=== PATIENT | female | born 1995 | race Caucasian/White ===

== ENCOUNTER 2016-05-30 10:48 | Emergency (ER) | payer BC, OTHER ==
[2016-05-30 11:33] LABS: BASO % 0.3 % (0.0-1.0); EOS # 0.2 K/mm3 (0.0-0.50); EOS % 2.2 % (0.0-3.0); LARGE UNSTAINED CELL # 0.1 K/mm3 (0.0-0.4); LYMPH # 1.4 K/mm3 (1.5-6.5); LYMPH % 14.7 % (24.0-44.0); MEAN CORPUSCULAR HGB CONC 35.5 g/dl (32.0-36.5); MEAN CORPUSCULAR VOLUME 87.1 fl (80.0-96.0); MONO # 0.5 K/mm3 (0.0-0.8); MONO % 5.6 % (0.0-5.0); NEUTROPHILS # 7.3 K/mm3 (1.8-7.7); NEUTROPHILS % 76.1 % (36.0-66.0); PLATELET COUNT, AUTOMATED 296 k/mm3 (150-450); RED CELL DISTRIBUTION WIDTH 12.3 % (11.5-14.5); WHITE BLOOD COUNT 9.6 K/mm3 (4.0-10.0)
[2016-05-30] MEDS ORDERED: ONDANSETRON 4MG/2ML VIAL (J2405) As Ordered ONE (11:42)
[2016-05-30] MEDS ORDERED: ACETAMINOPHEN 325 MG TAB As Ordered ONE (11:42)
[2016-05-30 11:43] LABS: ANION GAP 13 MEQ/L (8-16); BLOOD UREA NITROGEN 9 MG/DL (7-18); CALCIUM LEVEL 9.5 MG/DL (8.5-10.1); CARBON DIOXIDE LEVEL 20 MEQ/L (21-32); CHLORIDE LEVEL 107 MEQ/L (98-107); CREATININE FOR GFR 0.92 MG/DL (0.55-1.02); GLOMERULAR FILTRATION RATE > 60.0 (>60); GLUCOSE, FASTING 102 MG/DL (70-105); POTASSIUM SERUM 3.6 MEQ/L (3.5-5.1); SODIUM LEVEL 140 MEQ/L (136-145)
--- NOTE | 2016-05-30 12:30 | REP ---
PA and lateral chest 20 17 Indication: Shortness of breath Comparison: PA and lateral chest 03/07 16 Findings: Cardiomediastinal silhouette is normal. Lungs are without infiltrate or pleural effusion. Vague nodular density over the right lower lung field is most compatible with a nipple shadow. There is very minimal dextroscoliosis within the mid to lower thoracic spine. Soft tissues are within normal limits Impression : Probable nipple shadow projected over the right lower lung field . Consider PA chest with nipple markers. Lungs are otherwise clear. Normal cardiomediastinal silhouette Signed by Deysi Cabello MD 05/30/2016 12:21 P
--- NOTE | 2016-05-30 13:59 | REP ---
Chest one-view HISTORY: Shortness of breath Comparison: 12:00 p.m. 05/30/2016 Nipple markers are present. The lungs are clear. The heart is normal in size. The pulmonary vasculature is normal in appearance. Impression: No acute disease. Signed by Dougie Freeman MD 05/30/2016 01:51 P
--- NOTE | 2016-05-30 14:55 | EDDOCDS ---
Physician Documentation [facility] Name: Cheli Hagan Age: 20 yrs Sex: Female : 1995 Arrival Date: 05/30/2016 Time: 10:48 Bed 9 Private MD: Disposition: 05/30/16 14:17 Discharged to Home/Self Care. Impression: Allergy status to other antibiotic agents status - Allergic Reaction. - Condition is Stable. - Discharge Instructions: Drug Allergy. - Medication Reconciliation, Local Pharmacy Hours form. - [facility] up: [facility]; When: 2 - 3 days; Reason: Recheck today's complaints. - Problem is new. - Symptoms have improved. - Notes: You were seen in the ED for concerns of possible allergic reaction after beginning a new medicine today. Bloodwork along with EKG of the heart and chest Xray showed no other acute findings. you are feeling better you may return home. You may stop the Azithromycin and will need to see a primary care doctor for recheck and ongoing care. Please call the [facility] to arrange to be seen. Return to the ED for any return of trouble breathing or swallowing, rash, or any other concerns. Historical: - Allergies: Bactrim; - Home Meds: 1. ProAir HFA 90 mcg/actuation inhalation HFAA 2 puffs every 4-6 hours 2. nexplanon continuous - PMHx: Asthma; - PSHx: Tonsillectomy; Adenoidectomy; - Social history: Smoking status: Patient states was never smoker of tobacco. No barriers to communication noted, The patient speaks fluent Austrian, Speaks appropriately for age. - Family history: Not pertinent. - : The pt / caregiver states he / she is not on anticoagulants. Home medication list is obtained from the patient. - Exposure Risk Screening:: None identified. 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 3 in. (160.02 cm); Pain 10/10; 11:23 Temp 96.0(O); rn1 11:26 Pulse 96 MON; Pulse Ox 99% ; ttb 11:27 BP 106 / 59 (auto/); ttb 11:41 Pulse 90 MON; Pulse Ox 100% ; ttb 11:42 BP 103 / 58 (auto/); ttb 12:11 Pulse 84 MON; Pulse Ox 99% ; ttb 12:12 BP 101 / 58 (auto/); ttb 12:26 Pulse 76 MON; Pulse Ox 98% ; ttb 12:27 BP 106 / 59 (auto/); ttb 12:42 BP 100 / 56 (auto/); ttb 12:42 Pulse 74 MON; Resp 18 S; Pulse Ox 100% on R/A; ttb 13:56 Pulse 90 MON; Pulse Ox 99% ; ttb 13:57 BP 105 / 57 (auto/); ttb 14:12 Pulse 90 MON; Pulse Ox 99% ; ttb 14:12 BP 105 / 58 (auto/); ttb 14:27 BP 123 / 55 (auto/); ttb 14:28 Pulse 92 MON; Resp 18 S; Pulse Ox 97% on R/A; Pain 0/10; ttb 11:03 Body Mass Index 29.05 (74.39 kg, 160.02 cm) pml MDM: 10:52 IV Saline Lock ordered. br1 10:52 [employer]/Pulse Ox/q 30 min VS ordered. br1 10:53 ECG WITH READING ER PHYS+CARDIAG ordered. EDMS 11:08 Oral Temp ordered. br1 11:09 CBC with Diff Ordered. EDMS 11:09 BMP Ordered. EDMS 11:38 Acetaminophen Tablet 650 mg PO once; prn headache ordered. br1 11:38 Ondansetron 4 mg IVP once ordered. br1 11:38 NS 0.9% 1000 ml IV at 150 mL/hr continuous ordered. br1 11:38 Chest, 2 View (pa\E\lat) Ordered. EDMS 13:09 CBC with Diff Reviewed. br1 13:09 BMP Reviewed. br1 13:09 Chest, 2 View (pa\E\lat) Reviewed. br1 13:12 Chest, 1 View Ordered. EDMS 13:47 Financial registration complete. lg 13:48 [facility] Payment Agreement was scanned into [employer] and attached to record. lg Administered Medications: 11:44 Drug: Acetaminophen 650 mg [acetaminophen 325 mg tablet (2 tabs)] Route: PO; ttb 11:45 Drug: Ondansetron 4 mg [ondansetron HCl 2 mg/mL intravenous solution (2 mL)] Route: ttb IVP; Site: right antecubital; 12:00 Follow up: Response: Nausea is resolved; No Adverse Reaction ttb 11:45 Drug: NS 0.9% 1000 ml [sodium chloride 0.9 % intravenous solution] Route: IV; Rate: 150 ttb mL/hr; Site: right antecubital; 14:40 Follow up: Response: No Adverse Reaction; IV Status: Completed infusion; IV Intake: ttb 500ml Signatures: Dispatcher [employer] EDBinh Arias, Reg Reg lg Connor Mckeon MD MD br1 Amina Ramires RN RN Carolynn Yip RN RN ttb The chart was reviewed and I authenticate all verbal orders and agree with the evaluation and treatment provided.Attachments: 13:48 [facility] Payment Agreement lg MTDD
--- NOTE | 2016-05-30 14:56 | EDDOCDS ---
Nurse's Notes [facility] Name: Cheli Hagan Age: 20 yrs Sex: Female : 1995 Arrival Date: 05/30/2016 Time: 10:48 Bed 9 Private MD: Diagnosis: Allergy status to other antibiotic agents status-Allergic Reaction Presentation: 05/30 10:51 Presenting complaint: EMS states: possible allergic reaction - started on pml methylprednisone and azithro for bronchitis about 45 min prior to onset of symptoms. reported shortness of breath and tightness in throat to EMS - hives noted by EMS. given 50 benadryl and 0.3 epinephrine 1:1000 IV with reported headache following administration, but improvement of hives, SOB and swelling in throat. Onset: The symptoms/episode began/occurred gradually. This patient has not experienced a previous allergic reaction. Anaphylaxis evaluation, the patient reports or I have noted the following symptoms which indicate a significant risk of anaphylaxis:. 11:00 Adult Sepsis Screening: The patient does not have new or worsening altered mentation. pml Patient's respiratory rate is less than 22. Systolic blood pressure is greater than 100. Patient has a qSOFA score of 0- Negative Sepsis Screen. Suicide/Homicide risk assessment- the patient denies having any suicidal and/or homicidal ideations and does not present with any other emotional, behavioral or mental health complaints. 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 Transition of care: patient was not received from another setting of care. 11:00 Acuity: PATEL Level 3 pml 11:00 Method Of Arrival: Ambulance pml Triage Assessment: 11:03 General: Appears in no apparent distress, comfortable, Behavior is appropriate for age, pml cooperative. Pain: Location: scalp Pain currently is 10 out of 10 on a pain scale. HIV screening NA for this visit Offered previously. The patient is triaged at the bedside. See Assessment in Nurses Notes section of ED record. Neurological: Level of Consciousness is awake, alert, Oriented to person, place, time. Cardiovascular: Capillary refill < 3 seconds Rhythm is sinus tachycardia No ectopy. Respiratory: Airway is patent Respiratory effort is even, unlabored, Respiratory pattern is regular, symmetrical. Respiratory: Reports shortness of breath and tightness in throat have improved. GI: Abdomen is non- distended. Derm: Skin is pink, warm & dry. 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 ProAir HFA 90 mcg/actuation inhalation HFAA 2 puffs every 4-6 hours 2. nexplanon continuous - PMHx: Asthma; - PSHx: Tonsillectomy; Adenoidectomy; - Social history: Smoking status: Patient states was never smoker of tobacco. No barriers to communication noted, The patient speaks fluent Lao, Speaks appropriately for age. - Family history: Not pertinent. - : The pt / caregiver states he / she is not on anticoagulants. Home medication list is obtained from the patient. - Exposure Risk Screening:: None identified. Screenin:00 Screening information is obtained from the patient. ttb 12:00 Fall risk: No risks identified. Assistance ADL's: requires no assistance with ttb activities of daily living. Abuse/DV Screen: The patient / caregiver reports he/she is: not in a situation that causes fear, pain or injury. Nutritional screening: No deficits noted. Advance Directives: Currently, there is no health care proxy. home support is adequate. Assessment: 11:15 Pain: Pain: Location: head Pain currently is 10 out of 10 on a pain scale. ttb 11:15 General: Appears uncomfortable, well nourished, well groomed. Neurological: Level of ttb Consciousness is awake, alert, Oriented to person, place, time, Speech is normal. Cardiovascular: Rhythm is sinus rhythm Chest pain is denied. Respiratory: No deficits noted. Airway is patent Respiratory effort is even, unlabored, Respiratory pattern is regular, symmetrical, Breath sounds are clear bilaterally. Denies cough, shortness of breath. GI: Denies diarrhea, nausea, vomiting, pain. Derm: Skin is normal. Injury Description: No known injury. 12:15 Reassessment: Patient appears in no apparent distress at this time. Patient denies pain ttb at this time. Patient states feeling better. Patient states symptoms have improved. pt resting on stretcher. NAD noted. Resps 18 easy.. 12:45 Reassessment: Patient appears in no apparent distress at this time. Patient denies pain ttb at this time. Patient states feeling better. Patient states symptoms have improved. pt has no complaints at this time. Denies SOB, resps concerns. Nausea improved since arrival/meds.. 13:45 Reassessment: Patient appears in no apparent distress at this time. Patient denies pain ttb at this time. Patient states feeling better. Patient states symptoms have improved. General: visiting with friends. NAD noted. . Neurological: Level of Consciousness is awake, alert. Respiratory: Airway is patent Respiratory effort is even, unlabored, Denies cough, shortness of breath. 14:45 Reassessment: Patient appears in no apparent distress at this time. Patient denies pain ttb at this time. Patient states feeling better. Patient states symptoms have improved. pt states she is comfortable going marcin at this time.. 14:45 Adult Sepsis Screening: The patient does not have new or worsening altered mentation. ttb Patient's respiratory rate is less than 22. Systolic blood pressure is greater than 100. Patient has a qSOFA score of 0- Negative Sepsis Screen. General: Appears in no apparent distress, comfortable, Behavior is appropriate for age, cooperative, pleasant. Pain: Denies pain. Neurological: Level of Consciousness is awake, alert, Oriented to person, place, time. Cardiovascular: Rhythm is sinus rhythm Chest pain is denied. Respiratory: No deficits noted. Airway is patent Respiratory effort is even, unlabored, Respiratory pattern is regular, symmetrical, Denies cough, shortness of breath. GI: Denies nausea, vomiting, pain. Vital Signs: 11:03 BP 119 / 66; Pulse 89; Resp 18; Pulse Ox 100% on R/A; Weight 74.39 kg; Height 5 ft. 3 pml in. (160.02 cm); Pain 10/10; 11:23 Temp 96.0(O); rn1 11:26 Pulse 96 MON; Pulse Ox 99% ; ttb 11:27 BP 106 / 59 (auto/); ttb 11:41 Pulse 90 MON; Pulse Ox 100% ; ttb 11:42 BP 103 / 58 (auto/); ttb 12:11 Pulse 84 MON; Pulse Ox 99% ; ttb 12:12 BP 101 / 58 (auto/); ttb 12:26 Pulse 76 MON; Pulse Ox 98% ; ttb 12:27 BP 106 / 59 (auto/); ttb 12:42 BP 100 / 56 (auto/); ttb 12:42 Pulse 74 MON; Resp 18 S; Pulse Ox 100% on R/A; ttb 13:56 Pulse 90 MON; Pulse Ox 99% ; ttb 13:57 BP 105 / 57 (auto/); ttb 14:12 Pulse 90 MON; Pulse Ox 99% ; ttb 14:12 BP 105 / 58 (auto/); ttb 14:27 BP 123 / 55 (auto/); ttb 14:28 Pulse 92 MON; Resp 18 S; Pulse Ox 97% on R/A; Pain 0/10; ttb 11:03 Body Mass Index 29.05 (74.39 kg, 160.02 cm) pml Vitals: 11:03 Log In Time N/A - ambulance arrival. pml ED Course: 10:49 Patient visited by Maggie King, Employee Relations Administrator. lbd 10:49 Patient moved to Waiting lbd 10:50 Patient moved to 9 lbd 11:01 Triage Initiated pml 11:06 Patient visited by Amina Ramires,CALIN. pml 11:19 BMP Sent. ttb 11:20 Patient visited by Carolynn Fox RN. ttb 11:20 CBC with Diff Sent. ttb 11:20 Maintain field IV. Dressing intact. Good blood return noted. Site clean & dry. Gauge & ttb site: rac 20. Labs drawn. (by ED staff). 11:25 Connor Mckeon MD is Attending Physician. br1 11:29 EKG done. (by ED staff). Reviewed by Connor Mckeon MD. rn1 11:37 Patient visited by Connor Mckeon MD. br1 11:59 Patient visited by Carolynn Fox RN. ttb 12:00 The patient / caregiver is instructed regarding the plan of care and ED course. Patient ttb has correct armband on for positive identification. Placed in gown. Call light in reach. Side rails up X 1. nurse monitoring on. Pulse ox on. NIBP on. 12:45 Patient visited by Carolynn Fox RN. ttb 12:54 Chest, 2 View (pa\E\lat) Returned. EDMS 13:05 Patient visited by Carolynn Fox RN. ttb 13:48 [facility] [place] Agreement was scanned into [employer] and attached to record. lg 14:15 Patient visited by Connor Mckeon MD. br1 14:15 [facility] is Referral Physician. br1 14:38 Chest, 1 View Returned. EDMS 14:53 No procedures done that require assistance. ttb 14:53 Discontinued IV lock intact, bleeding controlled, pressure dressing applied, No ttb redness/swelling at site. Administered Medications: 11:44 Drug: Acetaminophen 650 mg [acetaminophen 325 mg tablet (2 tabs)] Route: PO; ttb 11:45 Drug: Ondansetron 4 mg [ondansetron HCl 2 mg/mL intravenous solution (2 mL)] Route: ttb IVP; Site: right antecubital; 12:00 Follow up: Response: Nausea is resolved; No Adverse Reaction ttb 11:45 Drug: NS 0.9% 1000 ml [sodium chloride 0.9 % intravenous solution] Route: IV; Rate: 150 ttb mL/hr; Site: right antecubital; 14:40 Follow up: Response: No Adverse Reaction; IV Status: Completed infusion; IV Intake: ttb 500ml Intake: 14:40 IV: 500.00ml; Total: 500.00ml. ttb Order Results: Lab Order: CBC with Diff; SPEC'M 05/30/16 11:17 Test: WHITE BLOOD COUNT; Value: 9.6; Range: 4.0-10.0; Units: K/mm3; Status: F Test: RED BLOOD COUNT; Value: 4.95; Range: 4.00-5.40; Units: M/mm3; Status: F Test: HEMOGLOBIN; Value: 15.3; Range: 12.0-16.0; Units: g/dl; Status: F Test: HEMATOCRIT; Value: 43.1; Range: 36.0-47.0; Units: %; Status: F Test: MEAN CORPUSCULAR VOLUME; Value: 87.1; Range: 80.0-96.0; Units: fl; Status: F Test: MEAN CORPUSCULAR HEMOGLOBIN; Value: 31.0; Range: 27.0-33.0; Units: pg; Status: F Test: MEAN CORPUSCULAR HGB CONC; Value: 35.5; Range: 32.0-36.5; Units: g/dl; Status: F Test: RED CELL DISTRIBUTION WIDTH; Value: 12.3; Range: 11.5-14.5; Units: %; Status: F Test: PLATELET COUNT, AUTOMATED; Value: 296; Range: 150-450; Units: k/mm3; Status: F Test: NEUTROPHILS %; Value: 76.1; Range: 36.0-66.0; Abnormal: Above high normal; Units: %; Status: F Test: LYMPH %; Value: 14.7; Range: 24.0-44.0; Abnormal: Below low normal; Units: %; Status: F Test: MONO %; Value: 5.6; Range: 0.0-5.0; Abnormal: Above high normal; Units: %; Status: F Test: EOS %; Value: 2.2; Range: 0.0-3.0; Units: %; Status: F Test: BASO %; Value: 0.3; Range: 0.0-1.0; Units: %; Status: F Test: LARGE UNSTAINED CELL %; Value: 1.0; Range: 0.0-4.0; Units: %; Status: F Test: NEUTROPHILS #; Value: 7.3; Range: 1.8-7.7; Units: K/mm3; Status: F Test: LYMPH #; Value: 1.4; Range: 1.5-6.5; Abnormal: Below low normal; Units: K/mm3; Status: F Test: MONO #; Value: 0.5; Range: 0.0-0.8; Units: K/mm3; Status: F Test: EOS #; Value: 0.2; Range: 0.0-0.50; Units: K/mm3; Status: F Test: BASO #; Value: 0.0; Range: 0.0-0.2; Units: K/mm3; Status: F Test: LARGE UNSTAINED CELL #; Value: 0.1; Range: 0.0-0.4; Units: K/mm3; Status: F Lab Order: [facility]; SPEC'M 05/30/16 11:17 Test: GLUCOSE, FASTING; Value: 102; Range: 70-105; Units: MG/DL; Status: F Test: BLOOD UREA NITROGEN; Value: 9; Range: 7-18; Units: MG/DL; Status: F Test: CREATININE FOR GFR; Value: 0.92; Range: 0.55-1.02; Units: MG/DL; Status: F Test: GLOMERULAR FILTRATION RATE; Value: > 60.0; Range: >60; Status: F Test: SODIUM LEVEL; Value: 140; Range: 136-145; Units: MEQ/L; Status: F Test: POTASSIUM SERUM; Value: 3.6; Range: 3.5-5.1; Units: MEQ/L; Status: F Test: CHLORIDE LEVEL; Value: 107; Range: 98-107; Units: MEQ/L; Status: F Test: CARBON DIOXIDE LEVEL; Value: 20; Range: 21-32; Abnormal: Below low normal; Units: MEQ/L; Status: F Test: ANION GAP; Value: 13; Range: 8-16; Units: MEQ/L; Status: F Test: CALCIUM LEVEL; Value: 9.5; Range: 8.5-10.1; Units: MG/DL; Status: F Test Note: ; Units are mL/min/1.73 m2 Chronic Kidney Disease Staging per NKF: Stage I & II GFR >=60 Normal to Mildly Decreased Stage III GFR 30-59 Moderately Decreased Stage IV GFR 15-29 Severely Decreased Stage V GFR <15 Very Little GFR Left ESRD GFR <15 on RECRUITER Radiology Order: Chest, 2 View (pa\E\lat) Test: Chest, 2 View (pa\E\lat) REASON FOR EXAMINATION: Shortness of Breath; PA and lateral chest 17; ; Indication: Shortness of breath; ; Comparison: PA and lateral chest 03/07 16; ; Findings: Cardiomediastinal silhouette is normal. Lungs are without infiltrate; or pleural effusion. Vague nodular density over the right lower lung field is; most compatible with a nipple shadow. There is very minimal dextroscoliosis; within the mid to lower thoracic spine. Soft tissues are within normal limits; ; Impression : Probable nipple shadow projected over the right lower lung field .; Consider PA chest with nipple markers. Lungs are otherwise clear.; ; Normal cardiomediastinal silhouette; ; ; Signed by; Deysi Cabello MD 05/30/2016 12:21 P; Radiology Order: Chest, 1 View Test: Chest, 1 View REASON FOR EXAMINATION: PA chest with nipple markers please; Chest one-view; ; HISTORY: Shortness of breath; ; Comparison: 12:00 p.m. 05/30/2016; ; Nipple markers are present. The lungs are clear. The heart is normal in size.; The pulmonary vasculature is normal in appearance.; ; Impression: No acute disease.; ; ; Signed by; Dougie Freeman MD 05/30/2016 01:51 P; Outcome: 14:17 Discharge ordered by Provider. br1 14:53 Discharge Assessment: Patient awake, alert and oriented x 3. No cognitive and/or ttb functional deficits noted. Patient verbalized understanding of disposition instructions. Patient awake and alert. patient administered narcotics - no. The following High Risk Discharge criteria are identified: None. Discharged to home ambulatory, with friend. Condition: good Condition: stable Condition: improved. Discharge instructions given to patient, Instructed on discharge instructions, follow up and referral plans. medication usage, Demonstrated understanding of instructions, medications, Pt was receptive of discharge instructions/ teaching. No special radiology studies were completed. Property :Personal belongings accompany Pt. 14:54 Patient left the ED. ttb Signatures: Dispatcher [employer] EDMS Maggie King, Employee Relations Administrator Unit lbd Binh Galindo, Payam Reg Connor Lyles MD MD br1 Amina Ramires,RN RN Carolynn Yip RN RN ttb Daniel Merrill rn1 Corrections: (The following items were deleted from the chart) 12:44 11:59 Pain: ttb ttb MTDD
--- NOTE | 2016-05-31 08:06 | ECGEPIP ---
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
--- NOTE | 2016-06-01 15:55 | EDDOCDS ---
Physician Documentation [facility] Name: Cheli Hagan Age: 20 yrs Sex: Female : 1995 Arrival Date: 05/30/2016 Time: 10:48 Bed 9 Private MD: Disposition: 05/30/16 14:17 Discharged to Home/Self Care. Impression: Allergy status to other antibiotic agents status - Allergic Reaction. - Condition is Stable. - Discharge Instructions: Drug Allergy. - Medication Reconciliation, Local Pharmacy Hours form. - [facility] up: [facility]; When: 2 - 3 days; Reason: Recheck today's complaints. - Problem is new. - Symptoms have improved. - Notes: You were seen in the ED for concerns of possible allergic reaction after beginning a new medicine today. Bloodwork along with EKG of the heart and chest Xray showed no other acute findings. you are feeling better you may return home. You may stop the Azithromycin and will need to see a primary care doctor for recheck and ongoing care. Please call the [facility] to arrange to be seen. Return to the ED for any return of trouble breathing or swallowing, rash, or any other concerns. Historical: - Allergies: Bactrim; - Home Meds: 1. ProAir HFA 90 mcg/actuation inhalation HFAA 2 puffs every 4-6 hours 2. nexplanon continuous - PMHx: Asthma; - PSHx: Tonsillectomy; Adenoidectomy; - Social history: Smoking status: Patient states was never smoker of tobacco. No barriers to communication noted, The patient speaks fluent Cameroonian, Speaks appropriately for age. - Family history: Not pertinent. - : The pt / caregiver states he / she is not on anticoagulants. Home medication list is obtained from the patient. - Exposure Risk Screening:: None identified. 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 3 in. (160.02 cm); Pain 10/10; 11:23 Temp 96.0(O); rn1 11:26 Pulse 96 MON; Pulse Ox 99% ; ttb 11:27 BP 106 / 59 (auto/); ttb 11:41 Pulse 90 MON; Pulse Ox 100% ; ttb 11:42 BP 103 / 58 (auto/); ttb 12:11 Pulse 84 MON; Pulse Ox 99% ; ttb 12:12 BP 101 / 58 (auto/); ttb 12:26 Pulse 76 MON; Pulse Ox 98% ; ttb 12:27 BP 106 / 59 (auto/); ttb 12:42 BP 100 / 56 (auto/); ttb 12:42 Pulse 74 MON; Resp 18 S; Pulse Ox 100% on R/A; ttb 13:56 Pulse 90 MON; Pulse Ox 99% ; ttb 13:57 BP 105 / 57 (auto/); ttb 14:12 Pulse 90 MON; Pulse Ox 99% ; ttb 14:12 BP 105 / 58 (auto/); ttb 14:27 BP 123 / 55 (auto/); ttb 14:28 Pulse 92 MON; Resp 18 S; Pulse Ox 97% on R/A; Pain 0/10; ttb 11:03 Body Mass Index 29.05 (74.39 kg, 160.02 cm) pml MDM: 10:52 IV Saline Lock ordered. br1 10:52 Organ Teacher/Pulse Ox/q 30 min VS ordered. br1 10:53 ECG WITH READING ER PHYS+CARDIAG ordered. EDMS 11:08 Oral Temp ordered. br1 11:09 CBC with Diff Ordered. EDMS 11:09 BMP Ordered. EDMS 11:38 Acetaminophen Tablet 650 mg PO once; prn headache ordered. br1 11:38 Ondansetron 4 mg IVP once ordered. br1 11:38 NS 0.9% 1000 ml IV at 150 mL/hr continuous ordered. br1 11:38 Chest, 2 View (pa\E\lat) Ordered. EDMS 13:09 CBC with Diff Reviewed. br1 13:09 BMP Reviewed. br1 13:09 Chest, 2 View (pa\E\lat) Reviewed. br1 13:12 Chest, 1 View Ordered. EDMS 13:47 Financial registration complete. lg 13:48 [facility] Payment Agreement was scanned into [employer] and attached to record. lg 15:33 T-Sheet-- Draft Copy was scanned into [employer] and attached to record. gb 15:33 ECG/EKG was scanned into [employer] and attached to record. gb 15:33 Radiology Report was scanned into [employer] and attached to record. gb Administered Medications: 11:44 Drug: Acetaminophen 650 mg [acetaminophen 325 mg tablet (2 tabs)] Route: PO; ttb 11:45 Drug: Ondansetron 4 mg [ondansetron HCl 2 mg/mL intravenous solution (2 mL)] Route: ttb IVP; Site: right antecubital; 12:00 Follow up: Response: Nausea is resolved; No Adverse Reaction ttb 11:45 Drug: NS 0.9% 1000 ml [sodium chloride 0.9 % intravenous solution] Route: IV; Rate: 150 ttb mL/hr; Site: right antecubital; 14:40 Follow up: Response: No Adverse Reaction; IV Status: Completed infusion; IV Intake: ttb 500ml Signatures: Dispatcher MedHost EDMS Ana Rosa Melton, Reg Reg gb Binh Galindo, Reg Reg lg Connor Mckeon MD MD br1 Amina Ramires RN RN pml Carolynn Fox RN RN ttb The chart was reviewed and I authenticate all verbal orders and agree with the evaluation and treatment provided.Attachments: 13:48 [facility] Payment Agreement lg 15:33 T-Sheet-- Draft Copy gb 15:33 ECG/EKG Chart Complete MTDD
--- NOTE | 2016-06-01 15:55 | EDDOCDS ---
Physician Documentation [facility] Name: Cheli Hagan Age: 20 yrs Sex: Female : 1995 Arrival Date: 05/30/2016 Time: 10:48 Bed 9 Private MD: Disposition: 05/30/16 14:17 Discharged to Home/Self Care. Impression: Allergy status to other antibiotic agents status - Allergic Reaction. - Condition is Stable. - Discharge Instructions: Drug Allergy. - Medication Reconciliation, Local Pharmacy Hours form. - Follow up: [facility]; When: 2 - 3 days; Reason: Recheck today's complaints. - Problem is new. - Symptoms have improved. - Notes: You were seen in the ED for concerns of possible allergic reaction after beginning a new medicine today. Bloodwork along with EKG of the heart and chest Xray showed no other acute findings. you are feeling better you may return home. You may stop the Azithromycin and will need to see a primary care doctor for recheck and ongoing care. Please call the [facility] to arrange to be seen. Return to the ED for any return of trouble breathing or swallowing, rash, or any other concerns. Historical: - Allergies: Bactrim; - Home Meds: 1. ProAir HFA 90 mcg/actuation inhalation HFAA 2 puffs every 4-6 hours 2. nexplanon continuous - PMHx: Asthma; - PSHx: Tonsillectomy; Adenoidectomy; - Social history: Smoking status: Patient states was never smoker of tobacco. No barriers to communication noted, The patient speaks fluent Macedonian, Speaks appropriately for age. - Family history: Not pertinent. - : The pt / caregiver states he / she is not on anticoagulants. Home medication list is obtained from the patient. - Exposure Risk Screening:: None identified. 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 3 in. (160.02 cm); Pain 10/10; 11:23 Temp 96.0(O); rn1 11:26 Pulse 96 MON; Pulse Ox 99% ; ttb 11:27 BP 106 / 59 (auto/); ttb 11:41 Pulse 90 MON; Pulse Ox 100% ; ttb 11:42 BP 103 / 58 (auto/); ttb 12:11 Pulse 84 MON; Pulse Ox 99% ; ttb 12:12 BP 101 / 58 (auto/); ttb 12:26 Pulse 76 MON; Pulse Ox 98% ; ttb 12:27 BP 106 / 59 (auto/); ttb 12:42 BP 100 / 56 (auto/); ttb 12:42 Pulse 74 MON; Resp 18 S; Pulse Ox 100% on R/A; ttb 13:56 Pulse 90 MON; Pulse Ox 99% ; ttb 13:57 BP 105 / 57 (auto/); ttb 14:12 Pulse 90 MON; Pulse Ox 99% ; ttb 14:12 BP 105 / 58 (auto/); ttb 14:27 BP 123 / 55 (auto/); ttb 14:28 Pulse 92 MON; Resp 18 S; Pulse Ox 97% on R/A; Pain 0/10; ttb 11:03 Body Mass Index 29.05 (74.39 kg, 160.02 cm) pml MDM: 10:52 IV Saline Lock ordered. br1 10:52 Hand Driller/Pulse Ox/q 30 min VS ordered. br1 10:53 ECG WITH READING ER PHYS+CARDIAG ordered. EDMS 11:08 Oral Temp ordered. br1 11:09 CBC with Diff Ordered. EDMS 11:09 BMP Ordered. EDMS 11:38 Acetaminophen Tablet 650 mg PO once; prn headache ordered. br1 11:38 Ondansetron 4 mg IVP once ordered. br1 11:38 NS 0.9% 1000 ml IV at 150 mL/hr continuous ordered. br1 11:38 Chest, 2 View (pa\E\lat) Ordered. EDMS 13:09 CBC with Diff Reviewed. br1 13:09 BMP Reviewed. br1 13:09 Chest, 2 View (pa\E\lat) Reviewed. br1 13:12 Chest, 1 View Ordered. EDMS 13:47 Financial registration complete. lg 13:48 [facility] Agreement was scanned into [employer] and attached to record. lg 15:33 T-Sheet-- Draft Copy was scanned into [employer] and attached to record. gb 15:33 ECG/EKG was scanned into [employer] and attached to record. gb 15:33 Radiology Report was scanned into [employer] and attached to record. gb Administered Medications: 11:44 Drug: Acetaminophen 650 mg [acetaminophen 325 mg tablet (2 tabs)] Route: PO; ttb 11:45 Drug: Ondansetron 4 mg [ondansetron HCl 2 mg/mL intravenous solution (2 mL)] Route: ttb IVP; Site: right antecubital; 12:00 Follow up: Response: Nausea is resolved; No Adverse Reaction ttb 11:45 Drug: NS 0.9% 1000 ml [sodium chloride 0.9 % intravenous solution] Route: IV; Rate: 150 ttb mL/hr; Site: right antecubital; 14:40 Follow up: Response: No Adverse Reaction; IV Status: Completed infusion; IV Intake: ttb 500ml Signatures: Dispatcher [employer] EDMS Ana Rosa Melton, Reg Reg gb Binh Galindo, Reg Reg lg Connor Mckeon MD MD br1 Amina Ramires RN RN pml Carolynn Fox RN RN ttb The chart was reviewed and I authenticate all verbal orders and agree with the evaluation and treatment provided.Attachments: 13:48 [facility] Agreement lg 15:33 T-Sheet-- Draft Copy gb 15:33 ECG/EKG Chart Complete MTDD
--- NOTE | 2016-06-01 15:55 | EDDOCDS ---
Nurse's Notes [facility] Name: Nereyda Hagan Age: 20 yrs Sex: Female : 1995 Arrival Date: 05/30/2016 Time: 10:48 Bed 9 Private MD: Diagnosis: Allergy status to other antibiotic agents status-Allergic Reaction Presentation: 05/30 10:51 Presenting complaint: EMS states: possible allergic reaction - started on pml methylprednisone and azithro for bronchitis about 45 min prior to onset of symptoms. reported shortness of breath and tightness in throat to EMS - hives noted by EMS. given 50 benadryl and 0.3 epinephrine 1:1000 IV with reported headache following administration, but improvement of hives, SOB and swelling in throat. Onset: The symptoms/episode began/occurred gradually. This patient has not experienced a previous allergic reaction. Anaphylaxis evaluation, the patient reports or I have noted the following symptoms which indicate a significant risk of anaphylaxis:. 11:00 Adult Sepsis Screening: The patient does not have new or worsening altered mentation. pml Patient's respiratory rate is less than 22. Systolic blood pressure is greater than 100. Patient has a qSOFA score of 0- Negative Sepsis Screen. Suicide/Homicide risk assessment- the patient denies having any suicidal and/or homicidal ideations and does not present with any other emotional, behavioral or mental health complaints. 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 Transition of care: patient was not received from another setting of care. 11:00 Acuity: PATEL Level 3 pml 11:00 Method Of Arrival: Ambulance pml Triage Assessment: 11:03 General: Appears in no apparent distress, comfortable, Behavior is appropriate for age, pml cooperative. Pain: Location: scalp Pain currently is 10 out of 10 on a pain scale. HIV screening NA for this visit Offered previously. The patient is triaged at the bedside. See Assessment in Nurses Notes section of ED record. Neurological: Level of Consciousness is awake, alert, Oriented to person, place, time. Cardiovascular: Capillary refill < 3 seconds Rhythm is sinus tachycardia No ectopy. Respiratory: Airway is patent Respiratory effort is even, unlabored, Respiratory pattern is regular, symmetrical. Respiratory: Reports shortness of breath and tightness in throat have improved. GI: Abdomen is non- distended. Derm: Skin is pink, warm & dry. 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 ProAir HFA 90 mcg/actuation inhalation HFAA 2 puffs every 4-6 hours 2. nexplanon continuous - PMHx: Asthma; - PSHx: Tonsillectomy; Adenoidectomy; - Social history: Smoking status: Patient states was never smoker of tobacco. No barriers to communication noted, The patient speaks fluent Greek, Speaks appropriately for age. - Family history: Not pertinent. - : The pt / caregiver states he / she is not on anticoagulants. Home medication list is obtained from the patient. - Exposure Risk Screening:: None identified. Screenin:00 Screening information is obtained from the patient. ttb 12:00 Fall risk: No risks identified. Assistance ADL's: requires no assistance with ttb activities of daily living. Abuse/DV Screen: The patient / caregiver reports he/she is: not in a situation that causes fear, pain or injury. Nutritional screening: No deficits noted. Advance Directives: Currently, there is no health care proxy. home support is adequate. Assessment: 11:15 Pain: Pain: Location: head Pain currently is 10 out of 10 on a pain scale. ttb 11:15 General: Appears uncomfortable, well nourished, well groomed. Neurological: Level of ttb Consciousness is awake, alert, Oriented to person, place, time, Speech is normal. Cardiovascular: Rhythm is sinus rhythm Chest pain is denied. Respiratory: No deficits noted. Airway is patent Respiratory effort is even, unlabored, Respiratory pattern is regular, symmetrical, Breath sounds are clear bilaterally. Denies cough, shortness of breath. GI: Denies diarrhea, nausea, vomiting, pain. Derm: Skin is normal. Injury Description: No known injury. 12:15 Reassessment: Patient appears in no apparent distress at this time. Patient denies pain ttb at this time. Patient states feeling better. Patient states symptoms have improved. pt resting on stretcher. NAD noted. Resps 18 easy.. 12:45 Reassessment: Patient appears in no apparent distress at this time. Patient denies pain ttb at this time. Patient states feeling better. Patient states symptoms have improved. pt has no complaints at this time. Denies SOB, resps concerns. Nausea improved since arrival/meds.. 13:45 Reassessment: Patient appears in no apparent distress at this time. Patient denies pain ttb at this time. Patient states feeling better. Patient states symptoms have improved. General: visiting with friends. NAD noted. . Neurological: Level of Consciousness is awake, alert. Respiratory: Airway is patent Respiratory effort is even, unlabored, Denies cough, shortness of breath. 14:45 Reassessment: Patient appears in no apparent distress at this time. Patient denies pain ttb at this time. Patient states feeling better. Patient states symptoms have improved. pt states she is comfortable going marcin at this time.. 14:45 Adult Sepsis Screening: The patient does not have new or worsening altered mentation. ttb Patient's respiratory rate is less than 22. Systolic blood pressure is greater than 100. Patient has a qSOFA score of 0- Negative Sepsis Screen. General: Appears in no apparent distress, comfortable, Behavior is appropriate for age, cooperative, pleasant. Pain: Denies pain. Neurological: Level of Consciousness is awake, alert, Oriented to person, place, time. Cardiovascular: Rhythm is sinus rhythm Chest pain is denied. Respiratory: No deficits noted. Airway is patent Respiratory effort is even, unlabored, Respiratory pattern is regular, symmetrical, Denies cough, shortness of breath. GI: Denies nausea, vomiting, pain. Vital Signs: 11:03 BP 119 / 66; Pulse 89; Resp 18; Pulse Ox 100% on R/A; Weight 74.39 kg; Height 5 ft. 3 pml in. (160.02 cm); Pain 10/10; 11:23 Temp 96.0(O); rn1 11:26 Pulse 96 MON; Pulse Ox 99% ; ttb 11:27 BP 106 / 59 (auto/); ttb 11:41 Pulse 90 MON; Pulse Ox 100% ; ttb 11:42 BP 103 / 58 (auto/); ttb 12:11 Pulse 84 MON; Pulse Ox 99% ; ttb 12:12 BP 101 / 58 (auto/); ttb 12:26 Pulse 76 MON; Pulse Ox 98% ; ttb 12:27 BP 106 / 59 (auto/); ttb 12:42 BP 100 / 56 (auto/); ttb 12:42 Pulse 74 MON; Resp 18 S; Pulse Ox 100% on R/A; ttb 13:56 Pulse 90 MON; Pulse Ox 99% ; ttb 13:57 BP 105 / 57 (auto/); ttb 14:12 Pulse 90 MON; Pulse Ox 99% ; ttb 14:12 BP 105 / 58 (auto/); ttb 14:27 BP 123 / 55 (auto/); ttb 14:28 Pulse 92 MON; Resp 18 S; Pulse Ox 97% on R/A; Pain 0/10; ttb 11:03 Body Mass Index 29.05 (74.39 kg, 160.02 cm) pml Vitals: 11:03 Log In Time N/A - ambulance arrival. pml ED Course: 10:49 Patient visited by Maggie King, Machine Plaster Mixer. lbd 10:49 Patient moved to Waiting lbd 10:50 Patient moved to 9 lbd 11:01 Triage Initiated pml 11:06 Patient visited by Amina Ramires,CALIN. pml 11:19 BMP Sent. ttb 11:20 Patient visited by Carolynn Fox RN. ttb 11:20 CBC with Diff Sent. ttb 11:20 Maintain field IV. Dressing intact. Good blood return noted. Site clean & dry. Gauge & ttb site: rac 20. Labs drawn. (by ED staff). 11:25 Connor Mckeon MD is Attending Physician. br1 11:29 EKG done. (by ED staff). Reviewed by Connor Mckeon MD. rn1 11:37 Patient visited by Connor Mckeon MD. br1 11:59 Patient visited by Carolynn Fox RN. ttb 12:00 The patient / caregiver is instructed regarding the plan of care and ED course. Patient ttb has correct armband on for positive identification. Placed in gown. Call light in reach. Side rails up X 1. zipper trimmer hand on. Pulse ox on. NIBP on. 12:45 Patient visited by Carolynn Fox RN. ttb 12:54 Chest, 2 View (pa\E\lat) Returned. EDMS 13:05 Patient visited by Carolynn Fox RN. ttb 13:48 [facility] Payment Agreement was scanned into [employer] and attached to record. lg 14:15 Patient visited by Connor Mckeon MD. br1 14:15 [facility] is Referral Physician. br1 14:38 Chest, 1 View Returned. EDMS 14:53 No procedures done that require assistance. ttb 14:53 Discontinued IV lock intact, bleeding controlled, pressure dressing applied, No ttb redness/swelling at site. 15:33 T-Sheet-- Draft Copy was scanned into [employer] and attached to record. gb 15:33 ECG/EKG was scanned into [employer] and attached to record. gb 15:33 Radiology Report was scanned into [employer] and attached to record. gb 05/31 08:41 EKG-ADULT Returned. EDMS Administered Medications: 05/30 11:44 Drug: Acetaminophen 650 mg [acetaminophen 325 mg tablet (2 tabs)] Route: PO; ttb 11:45 Drug: Ondansetron 4 mg [ondansetron HCl 2 mg/mL intravenous solution (2 mL)] Route: ttb IVP; Site: right antecubital; 12:00 Follow up: Response: Nausea is resolved; No Adverse Reaction ttb 11:45 Drug: NS 0.9% 1000 ml [sodium chloride 0.9 % intravenous solution] Route: IV; Rate: 150 ttb mL/hr; Site: right antecubital; 14:40 Follow up: Response: No Adverse Reaction; IV Status: Completed infusion; IV Intake: ttb 500ml Intake: 14:40 IV: 500.00ml; Total: 500.00ml. ttb Order Results: Lab Order: CBC with Diff; SPEC'M 05/30/16 11:17 Test: WHITE BLOOD COUNT; Value: 9.6; Range: 4.0-10.0; Units: K/mm3; Status: F Test: RED BLOOD COUNT; Value: 4.95; Range: 4.00-5.40; Units: M/mm3; Status: F Test: HEMOGLOBIN; Value: 15.3; Range: 12.0-16.0; Units: g/dl; Status: F Test: HEMATOCRIT; Value: 43.1; Range: 36.0-47.0; Units: %; Status: F Test: MEAN CORPUSCULAR VOLUME; Value: 87.1; Range: 80.0-96.0; Units: fl; Status: F Test: MEAN CORPUSCULAR HEMOGLOBIN; Value: 31.0; Range: 27.0-33.0; Units: pg; Status: F Test: MEAN CORPUSCULAR HGB CONC; Value: 35.5; Range: 32.0-36.5; Units: g/dl; Status: F Test: RED CELL DISTRIBUTION WIDTH; Value: 12.3; Range: 11.5-14.5; Units: %; Status: F Test: PLATELET COUNT, AUTOMATED; Value: 296; Range: 150-450; Units: k/mm3; Status: F Test: NEUTROPHILS %; Value: 76.1; Range: 36.0-66.0; Abnormal: Above high normal; Units: %; Status: F Test: LYMPH %; Value: 14.7; Range: 24.0-44.0; Abnormal: Below low normal; Units: %; Status: F Test: MONO %; Value: 5.6; Range: 0.0-5.0; Abnormal: Above high normal; Units: %; Status: F Test: EOS %; Value: 2.2; Range: 0.0-3.0; Units: %; Status: F Test: BASO %; Value: 0.3; Range: 0.0-1.0; Units: %; Status: F Test: LARGE UNSTAINED CELL %; Value: 1.0; Range: 0.0-4.0; Units: %; Status: F Test: NEUTROPHILS #; Value: 7.3; Range: 1.8-7.7; Units: K/mm3; Status: F Test: LYMPH #; Value: 1.4; Range: 1.5-6.5; Abnormal: Below low normal; Units: K/mm3; Status: F Test: MONO #; Value: 0.5; Range: 0.0-0.8; Units: K/mm3; Status: F Test: EOS #; Value: 0.2; Range: 0.0-0.50; Units: K/mm3; Status: F Test: BASO #; Value: 0.0; Range: 0.0-0.2; Units: K/mm3; Status: F Test: LARGE UNSTAINED CELL #; Value: 0.1; Range: 0.0-0.4; Units: K/mm3; Status: F Lab Order: [facility]; SPEC'M 05/30/16 11:17 Test: GLUCOSE, FASTING; Value: 102; Range: 70-105; Units: MG/DL; Status: F Test: BLOOD UREA NITROGEN; Value: 9; Range: 7-18; Units: MG/DL; Status: F Test: CREATININE FOR GFR; Value: 0.92; Range: 0.55-1.02; Units: MG/DL; Status: F Test: GLOMERULAR FILTRATION RATE; Value: > 60.0; Range: >60; Status: F Test: SODIUM LEVEL; Value: 140; Range: 136-145; Units: MEQ/L; Status: F Test: POTASSIUM SERUM; Value: 3.6; Range: 3.5-5.1; Units: MEQ/L; Status: F Test: CHLORIDE LEVEL; Value: 107; Range: 98-107; Units: MEQ/L; Status: F Test: CARBON DIOXIDE LEVEL; Value: 20; Range: 21-32; Abnormal: Below low normal; Units: MEQ/L; Status: F Test: ANION GAP; Value: 13; Range: 8-16; Units: MEQ/L; Status: F Test: CALCIUM LEVEL; Value: 9.5; Range: 8.5-10.1; Units: MG/DL; Status: F Test Note: ; Units are mL/min/1.73 m2 Chronic Kidney Disease Staging per NKF: Stage I & II GFR >=60 Normal to Mildly Decreased Stage III GFR 30-59 Moderately Decreased Stage IV GFR 15-29 Severely Decreased Stage V GFR <15 Very Little GFR Left ESRD GFR <15 on IMAGING SERVICES DIRECTOR Radiology Order: EKG-ADULT Test: EKG-ADULT REASON FOR EXAMINATION: dysrhythmia; Stationary ECG Study; [facility] - ED; ; Test Date: 2016-05-30; Pat Name: NEREYDA HAGAN Department:; Room: -; Gender: F 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; : 1995 Requested By: CONNOR Rinaldi; Order Number: [id number] Reading MD: Lashae Rossi; Measurements; Intervals [place]; Rate: 96 P: 46; MS: 131 QRS: 68; QRSD: 110 T: 48; QT: 342; QTc: 434; Interpretive Statements; SINUS RHYTHM; NO PRIOR FOR COMPARISON; Electronically Signed On 05-31-2016 8:05:47 EST by Lashae Rossi; Radiology Order: Chest, 2 View (pa\E\lat) Test: Chest, 2 View (pa\E\lat) REASON FOR EXAMINATION: Shortness of Breath; PA and lateral chest 17; ; Indication: Shortness of breath; ; Comparison: PA and lateral chest 03/07 16; ; Findings: Cardiomediastinal silhouette is normal. Lungs are without infiltrate; or pleural effusion. Vague nodular density over the right lower lung field is; most compatible with a nipple shadow. There is very minimal dextroscoliosis; within the mid to lower thoracic spine. Soft tissues are within normal limits; ; Impression : Probable nipple shadow projected over the right lower lung field .; Consider PA chest with nipple markers. Lungs are otherwise clear.; ; Normal cardiomediastinal silhouette; ; ; Signed by; Deysi Cabello MD 05/30/2016 12:21 P; Radiology Order: Chest, 1 View Test: Chest, 1 View REASON FOR EXAMINATION: PA chest with nipple markers please; Chest one-view; ; HISTORY: Shortness of breath; ; Comparison: 12:00 p.m. 05/30/2016; ; Nipple markers are present. The lungs are clear. The heart is normal in size.; The pulmonary vasculature is normal in appearance.; ; Impression: No acute disease.; ; ; Signed by; Dougie Freeman MD 05/30/2016 01:51 P; Outcome: 14:17 Discharge ordered by Provider. br1 14:53 Discharge Assessment: Patient awake, alert and oriented x 3. No cognitive and/or ttb functional deficits noted. Patient verbalized understanding of disposition instructions. Patient awake and alert. patient administered narcotics - no. The following High Risk Discharge criteria are identified: None. Discharged to home ambulatory, with friend. Condition: good Condition: stable Condition: improved. Discharge instructions given to patient, Instructed on discharge instructions, follow up and referral plans. medication usage, Demonstrated understanding of instructions, medications, Pt was receptive of discharge instructions/ teaching. No special radiology studies were completed. Property :Personal belongings accompany Pt. 14:54 Patient left the ED. ttb Signatures: Dispatcher [employer] EDMS Maggie King, Machine Plaster Mixer Unit lbd Ana Rosa Melton, Reg Reg gb Binh Galindo, Reg Reg lg Connor Mckeon MD MD br1 Amina Ramires RN RN pml Carolynn Fox RN RN ttb Daniel Merrill rn1 Corrections: (The following items were deleted from the chart) 12:44 11:59 Pain: ttb ttb Chart Complete MTDD
== END 2016-05-30 14:54 | disposition home or self-care (01) ==
LOC: M ED 10:48
DX: T78.40XA Allergy, unspecified, initial encounter (principal); Y92.89 Other specified places as the place of occurrence of the external cause; J45.909 Unspecified asthma, uncomplicated; Z88.1 Allergy status to other antibiotic agents
CPT/HCPCS: 36415; 71010; 71020; 80048; 85025; 93005; 93041; 96361; 96374; 99284; J2405

== ENCOUNTER 2016-09-25 23:37 | Emergency (ER) | payer BC, OTHER ==
[~2016-09-25] VITALS: Ht 160 cm; Wt 69.9 kg
[2016-09-26 00:23] LABS: BASO % 0.5 % (0.0-1.0); EOS # 0.2 K/mm3 (0.0-0.50); EOS % 2.5 % (0.0-3.0); LARGE UNSTAINED CELL # 0.1 K/mm3 (0.0-0.4); LARGE UNSTAINED CELL % 0.9 % (0.0-4.0); LYMPH # 1.3 K/mm3 (1.5-6.5); LYMPH % 13.4 % (24.0-44.0); MEAN CORPUSCULAR HEMOGLOBIN 31.2 pg (27.0-33.0); MEAN CORPUSCULAR HGB CONC 34.9 g/dl (32.0-36.5); MEAN CORPUSCULAR VOLUME 89.5 fl (80.0-96.0); MONO # 0.6 K/mm3 (0.0-0.8); MONO % 6.4 % (0.0-5.0); NEUTROPHILS % 76.4 % (36.0-66.0); PLATELET COUNT, AUTOMATED 262 k/mm3 (150-450); RED CELL DISTRIBUTION WIDTH 12.5 % (11.5-14.5); WHITE BLOOD COUNT 9.1 K/mm3 (4.0-10.0)
[2016-09-26 00:33] LABS: ABG BASE EXCESS -0.5 (-2.0-2.0); ABG HCO3 20.4 MEQ/L (22.0-26.0); ABG PARTIAL PRESSURE CO2 25.4 mmHg (35.0-45.0); ABG PARTIAL PRESSURE O2 114.9 mmHg (75.0-100.0); ABG STANDARD HCO3 24.1 MEQ/L (22.0-26.0); ABG TOTAL CO2 21.2 MEQ/L (22.0-29.0); ABG pH (ARTERIAL) 7.523 UNITS (7.350-7.450)
[2016-09-26 00:44] LABS: CONTROL LINE HCG INT CTR LINE PRESENT
[2016-09-26] MEDS ORDERED: KETOROLAC 30 MG/ML VIAL (J1885) IV ONE (01:15)
[2016-09-26] MEDS ORDERED: diphenhydrAMINE INJ 50MG/ML VIAL (J1200) IV STA (01:28)
[2016-09-26] MEDS ORDERED: dexameTHASONE 20 MG/5 ML VIAL (J1100) IV ONE (01:30)
[2016-09-26] MEDS ORDERED: ISOVUE-370 76% 100ML VIAL (Q9967) As Ordered ONE (01:31)
[2016-09-26 01:41] LABS: ANION GAP 9 MEQ/L (8-16); BLOOD UREA NITROGEN 14 MG/DL (7-18); CALCIUM LEVEL 8.4 MG/DL (8.5-10.1); CARBON DIOXIDE LEVEL 26 MEQ/L (21-32); CHLORIDE LEVEL 107 MEQ/L (98-107); CREATININE FOR GFR 0.73 MG/DL (0.55-1.02); GLOMERULAR FILTRATION RATE > 60.0 (>60); GLUCOSE, FASTING 109 MG/DL (70-105); POTASSIUM SERUM 3.8 MEQ/L (3.5-5.1); SODIUM LEVEL 142 MEQ/L (136-145)
--- NOTE | 2016-09-26 02:30 | REPUSA ---
CLINICAL HISTORY: Dyspnea, exclude PE. TECHNIQUE: Multiple incremental axial, coronal and oblique images are obtained from the thoracic inle t to the upper abdomen. Intravenous contrast material was administered as per pulmonary embolism prot ocol. COMMENTS: There is excellent opacification of pulmonary arterial system without evidence for pulmonary embolism . Aorta is of normal caliber without evidence for dissection or aneurysm. There is no evidence of pleural or parenchymal mass. There are no pleural effusions. There is no evid ence of hilar or mediastinal lymphadenopathy. The heart and great vessels are within normal limits. Images of the upper abdomen demonstrate no evidence of adrenal mass. The bony structures are free of lytic or blastic lesions. Multilevel degenerative changes are seen in volving the visualized thoracolumbar spine. Scattered calcifications are seen involving the aorta and major branches compatible with atherosclero sis. IMPRESSION: No evidence for pulmonary embolism. Thank you for your kind referral of this patient.
[2016-09-26] MEDS ORDERED: KETO10TAB PO (02:45)
[2016-09-26 02:55] VITALS: BP 125/59
--- NOTE | 2016-09-26 12:16 | ECGEPIP ---
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
== END 2016-09-26 03:07 | disposition home or self-care (01) ==
LOC: EDBD 23:37 → M ED 09-26 00:36
DX: R07.1 Chest pain on breathing (principal)
CPT/HCPCS: 36600; 71275; 80048; 82550; 82553; 82803; 84703; 85025; 93005; 96374; 96375; 99284; J1100; J1200; J1885; Q9967

== ENCOUNTER 2018-02-26 02:10 | Emergency (ER) | payer OTHER, BC ==
[2018-02-26 02:48] LABS: BASO % 0.3 % (0.0-1.0); EOS # 0.1 10^3/uL (0.0-0.50); EOS % 0.6 % (0.0-3.0); HEMATOCRIT 42.6 % (36.0-47.0); HEMOGLOBIN 14.4 g/dl (12.0-15.5); IMMATURE GRANULOCYTE % 0.4 % (0-3.0); LYMPH % 18.2 % (24.0-44.0); MEAN CORPUSCULAR HEMOGLOBIN 30.8 pg (27.0-33.0); MEAN CORPUSCULAR HGB CONC 33.8 g/dl (32.0-36.5); MEAN CORPUSCULAR VOLUME 91.2 fl (80.0-96.0); MONO # 1.1 10^3/uL (0.0-0.8); MONO % 10.4 % (0.0-5.0); NEUTROPHILS # 7.6 10^3/uL (1.8-7.7); NEUTROPHILS % 70.1 % (36.0-66.0); PLATELET COUNT, AUTOMATED 291 10^3/uL (150-450); RED BLOOD COUNT 4.67 10^6/uL (4.00-5.40); RED CELL DISTRIBUTION WIDTH 12.1 % (11.5-14.5); WHITE BLOOD COUNT 10.8 10^3/uL (4.0-10.0)
[2018-02-26 03:28] LABS: CONTROL LINE HCG INT CTR LINE PRESENT; HCG, SERUM QUALITATIVE NEGATIVE (NEGATIVE)
[2018-02-26 03:35] LABS: ALBUMIN 4.5 GM/DL (3.2-5.2); ALBUMIN/GLOBULIN RATIO 1.45 (1.00-1.93); ALKALINE PHOSPHATASE 84 U/L (45-117); ALT/SGPT 18 U/L (12-78); ANION GAP 7 MEQ/L (8-16); AST/SGOT 10 U/L (7-37); BILIRUBIN,TOTAL 0.4 MG/DL (0.2-1.0); BLOOD UREA NITROGEN 10 MG/DL (7-18); CALCIUM LEVEL 8.8 MG/DL (8.5-10.1); CARBON DIOXIDE LEVEL 27 MEQ/L (21-32); CHLORIDE LEVEL 109 MEQ/L (98-107); CREATININE FOR GFR 0.71 MG/DL (0.55-1.30); GLOMERULAR FILTRATION RATE > 60.0 (>60); GLUCOSE, FASTING 101 MG/DL (70-100); POTASSIUM SERUM 3.7 MEQ/L (3.5-5.1); SODIUM LEVEL 143 MEQ/L (136-145); TOTAL PROTEIN 7.6 GM/DL (6.4-8.2)
[2018-02-26 03:56] LABS: HIVEXPOSED0 NEGATIVE (NEGATIVE)
[2018-02-26 03:57] LABS: CONTROL LINE INT CTR LINE PRESENT; HIV EXPOSED PT 1 NEGATIVE (NEGATIVE)
[2018-02-26 10:26] LABS: HEPATITIS B SURFACE ANTIBODY NEGATIVE (POSITIVE)
[2018-02-26 10:37] LABS: HEPATITIS B SURFACE ANTIGEN NEGATIVE (NEGATIVE)
== END 2018-02-26 03:58 | disposition home or self-care (01) ==
LOC: M ED 02:10
DX: Z77.21 Contact with and (suspected) exposure to potentially hazardous body fluids (principal); Z88.1 Allergy status to other antibiotic agents; Z91.013 Allergy to seafood; Z91.048 Other nonmedicinal substance allergy status
CPT/HCPCS: 80053

== ENCOUNTER → 2019-06-23 | Outpatient (REF) | payer OTHER ==
[~2019-06-23] MED LIST: KETO10TAB PO; NEXP1IMP SC
== END ==
LOC: M SFHCWAGY 12:48
PROVIDERS: ATTEND Advanced Practice Midwife
DX: Z12.4 Encounter for screening for malignant neoplasm of cervix (principal)

== ENCOUNTER 2020-10-25 13:49 | Emergency (ER) | payer OTHER, BC ==
[~2020-10-25] VITALS: Ht 160 cm; Wt 79.5 kg
[2020-10-25] MEDS ORDERED: ONDANSETRON 4MG/2ML VIAL IV ONE (14:05)
[2020-10-25] MEDS ORDERED: NS 1,000 ML IV ONE (14:05)
[2020-10-25] MEDS ORDERED: MORPHINE 2 MG/ML 1ML VIAL (J2270) IV ONE (14:05)
[2020-10-25 14:49] LABS: BASO % 0.5 % (0.0-1.0); EOS # 0.1 10^3/uL (0.0-0.5); EOS % 1.6 % (0.0-3.0); HEMOGLOBIN 14.3 g/dl (12.0-15.5); LYMPH # 1.9 10^3/uL (1.5-5.0); LYMPH % 23.3 % (24.0-44.0); MEAN CORPUSCULAR HEMOGLOBIN 28.9 pg (27.0-33.0); MEAN CORPUSCULAR HGB CONC 32.5 g/dl (32.0-36.5); MEAN CORPUSCULAR VOLUME 89.1 fl (80.0-96.0); MONO # 0.9 10^3/uL (0.0-0.8); MONO % 10.8 % (2.0-8.0); NEUTROPHILS # 5.3 10^3/uL (1.5-8.5); NEUTROPHILS % 63.6 % (36.0-66.0); PLATELET COUNT, AUTOMATED 356 10^3/uL (150-450); RED BLOOD COUNT 4.94 10^6/uL (4.00-5.40); WHITE BLOOD COUNT 8.3 10^3/uL (4.0-10.0)
[2020-10-25] MEDS ORDERED: BUPIVACAINE HCL 0.25% 10ML VIAL SC ONE (14:55)
[2020-10-25] MEDS ORDERED: LIDOCAINE 1% MDV 20ML VIAL IM ONE (14:55)
--- NOTE | 2020-10-25 15:00 | REP ---
INDICATION: fall off long board tender to elbow. COMPARISON: None. TECHNIQUE: AP and lateral views of the forearm. FINDINGS: Distal radial and ulnar fractures are noted but better imaged on the wrist series also obtained today. FINDINGS: Please see that report. No additional fractures are seen in the more proximal forearm. IMPRESSION: As above <Electronically signed by Evangelist Ibarra > 10/25/20 [id number]
--- NOTE | 2020-10-25 15:00 | REP ---
INDICATION: fall/obvious deformity COMPARISON: None. TECHNIQUE: Four views left wrist. FINDINGS: There is a comminuted impacted intra-articular fracture of the distal radius with dorsal displacement and angulation. There is an ulnar styloid fracture. IMPRESSION: Comminuted impacted intra-articular fracture distal radius with dorsal displacement and angulation. Ulnar styloid fracture. <Electronically signed by Conor Benitez > 10/25/20 [id number]
--- NOTE | 2020-10-25 15:35 | REP ---
INDICATION: obvious deformity,. COMPARISON: Plain films today. TECHNIQUE: Sixth CT images left wrist performed in the sagittal plane. Coronal and axial reconstruction images are performed. FINDINGS: There is a comminuted, impacted, intra-articular fracture of the distal radius. There is mild posterior displacement and angulation. There is a nondisplaced fracture of the ulnar styloid process. There is surrounding soft tissue edema. IMPRESSION: Comminuted, impacted, intra-articular fracture of the distal radius with mild posterior displacement and angulation. Nondisplaced fracture ulnar styloid. <Electronically signed by Conor Benitez > 10/25/20 [id number]
[2020-10-25] MEDS ORDERED: KETOROLAC 30 MG/ML 1ML VIAL IV ONE (15:45)
[2020-10-25] MEDS ORDERED: ACET1TAB16 PO (17:07)
[2020-10-25 18:30] VITALS: BP 122/68
--- NOTE | 2020-10-25 19:06 | REPVR ---
PROCEDURE INFORMATION: Exam: CT Left Upper Extremity Without Contrast, Wrist Exam date and time: 10/25/2020 6:18 PM Age: 25 years old Clinical indication: Other: Post reduction, pre-op TECHNIQUE: Imaging protocol: CT of the Left upper extremity without contrast was performed. Exam focused on the wrist. Radiation optimization: All CT scans at this facility use at least one of these dose optimization techniques: automated exposure control; mA and/or kV adjustment per patient size (includes targeted exams where dose is matched to clinical indication); or iterative reconstruction. COMPARISON: CT-Wrist WITHOUT CONTRAST 10/25/2020 2:46 PM FINDINGS: Bones/joints: Acute fracture of the ulnar styloid process. Acute comminuted fracture of the radial metaphyseal fracture extending into the articular surface. The distal fracture fragments in are displaced laterally and anteriorly. Soft tissues: Normal. IMPRESSION: Acute comminuted fracture of the radial metaphysis extending into the articular surface. The distal fracture fragments are displaced laterally and anteriorly. Acute fracture of the ulnar styloid process. Electronically signed by: John Ramos On 10/25/2020 19:05:34 PM
--- NOTE | 2020-10-26 07:56 | REP ---
INDICATION: reduction. COMPARISON: None. TECHNIQUE: Intraoperative fluoroscopic imaging using C-arm technique FINDINGS: AP and lateral views of the wrist demonstrates transverse fracture through the distal radial metaphysis. Further evaluation is limited by overlying cast material and technique. Total fluoroscopic time 69.7 seconds IMPRESSION: Acute transverse fracture through the distal radial metaphysis. <Electronically signed by Girma Temple > 10/26/20 [id number]
--- NOTE | 2020-10-26 15:32 | CR ---
CONSULTATION DATE: 10/25/2020 CHIEF COMPLAINT: Left wrist pain. HISTORY OF PRESENT ILLNESS: The patient is a 25-year-old female who was doing Hoverboard and she fell onto her outstretched left hand and noted the onset of pain and deformity. She presented to the emergency department on October,. The patient denies any numbness or tingling in her fingers. She has no other complaints of pain in her forearm or hand or elbow. Otherwise, no other complaints. PAST MEDICAL HISTORY: She has a previous history of asthma but has not been on any medications for a very long time. This is controlled. PAST SURGICAL HISTORY: Noncontributory. MEDICATIONS: None. ALLERGIES: SHELLFISH AND AZITHROMYCIN. SHE DID GET AN ANAPHYLACTIC REACTION TO AZITHROMYCIN. 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 REVIEW OF SYSTEMS: A 10 point review of systems was reviewed and all organ systems were negative except for what is in HPI. PHYSICAL EXAMINATION: GENERAL: She is well-developed, well-nourished, in no acute distress. NEURO: Alert and oriented x4. PSYCH: Normal mood and affect. CARDIAC: Regular rate and rhythm. RESPIRATORY: Nonlabored breathing. Equal chest rise and fall. ABDOMEN: Nontender, nondistended. SKIN: Intact, no ecchymosis, swelling or breaks in the skin. MUSCULOSKELETAL: Focused exam of left upper extremity demonstrates obvious deformity at the left wrist. The patient has tenderness to palpation over the wrist, no tenderness over the hand, forearm or elbow. Range of motion is limited secondary to pain over the wrist. She was sensory intact to light touch in the radial, ulnar and median nerves, motor intact in the AIN, PIN, radial and radial nerves. She had brisk capillary refill in all digits and 2+ radial pulse. IMAGING: Radiographs of the left wrist demonstrate an apex angulated distal radius fracture with some comminution. ASSESSMENT: This is a 25-year-old female with left distal radius fracture, displaced and angulated. PLAN: I had a long discussion with the patient about her injury and treatment options. Initially I recommended a hematoma block and closed reduction and immobilization. The patient underwent this in the emergency department after obtaining written consent. Hematoma block was performed under sterile conditions and the left wrist was then hung on traction with finger traps with about 10 lb of weight applied. Closed reduction was then performed and a sugar tong splint was then applied. Post-reduction radiographs demonstrate improvement in the volar tilt but still lacking in radial height. The patient will return to see me in clinic the next day after she was closed reduced and we will have her scheduled for surgery for the next week. I discussed with her surgical and nonsurgical options. Because of her young age, highly active state in her life right now and her wishes not to be in a cast for 6-8 weeks, we will plan on open reduction and internal fixation of the left distal radius fracture with a volar plate. For now, the patient will be nonweightbearing in the left upper extremity and she will do wrist elevation. We will have her follow up for preop.
[2020-10-29] MEDS ORDERED: IBUP1TAB6 PO (08:08)
== END 2020-10-25 18:31 | disposition home or self-care (01) ==
LOC: M ED 13:49
DX: S52.572A Other intraarticular fracture of lower end of left radius, initial encounter for closed fracture (principal); S52.612A Displaced fracture of left ulna styloid process, initial encounter for closed fracture; S63.006A Unspecified dislocation of unspecified wrist and hand, initial encounter; V00.181A Fall from other rolling-type pedestrian conveyance, initial encounter; Y92.89 Other specified places as the place of occurrence of the external cause; J45.909 Unspecified asthma, uncomplicated; Z91.018 Allergy to other foods; Z91.048 Other nonmedicinal substance allergy status; Z88.1 Allergy status to other antibiotic agents
CPT/HCPCS: 25605; 73090; 73110; 73200; 76000; 80047; 84702; 85025; 96361; 96374; 96375; 99284; J1885; J2270; J2405

== ENCOUNTER → 2020-10-27 | Outpatient (CLI) | payer BC, OTHER ==
[~2020-10-27] MED LIST changes: +ACET1TAB16 PO; +IBUP1TAB6 PO
== END ==
LOC: M LABSMTC 09:56
PROVIDERS: ATTEND Anesthesiology
DX: Z01.812 Encounter for preprocedural laboratory examination (principal); Z20.822 Contact with and (suspected) exposure to COVID-19

== ENCOUNTER 2020-10-31 13:49 | Day surgery (SDC) | payer BC, OTHER ==
[~2020-10-31] VITALS: Ht 162.6 cm; Wt 79.8 kg
[~2020-10-31 13:49] MED LIST changes: +LR 1,000 ML IV ONE
[2020-10-31] MEDS ORDERED: MIDAZOLAM INJ 2MG/2ML VIAL (J2250 PER 1MG) As Ordered ONE (15:40)
[2020-10-31] MEDS ORDERED: fentaNYL 100 MCG/2 ML INJECTION (J3010) As Ordered ONE ×2 (15:41→19:02)
[2020-10-31] MEDS ORDERED: BUPIVACAINE/EPIN 0.25% 30 ML VIAL As Ordered ONE (15:58)
[2020-10-31] MEDS ORDERED: ceFAZolin SOD 2 GM in IV 1 EA IV ONE (16:40)
[2020-10-31] MEDS ORDERED: ceFAZolin 2 GM/D5W 50 ML IV BAG (J0690 PER 500MG) As Ordered ONE (16:42)
[2020-10-31] MEDS ORDERED: ACETAMINOPHEN 1000MG 100ML IV BTL (OFIRMEV) (J0131 PER 10MG) As Ordered ONE (17:00)
[2020-10-31] MEDS ORDERED: dexameTHASONE 4 MG/ML 1ML VIAL (J1100 PER 1MG) As Ordered ONE (17:00)
[2020-10-31] MEDS ORDERED: LIDOCAINE 2% 100MG/5ML SDV (FOR ANES.) As Ordered ONE (17:00)
[2020-10-31] MEDS ORDERED: propofoL 200 MG/20 ML VIAL As Ordered ONE (17:00)
[2020-10-31] MEDS ORDERED: ONDANSETRON 4MG/2ML VIAL As Ordered ONE (17:08)
[2020-10-31] MEDS ORDERED: HYDROmorphone HCL 2 MG/ML 1ML VIAL (J1170) As Ordered ONE (17:20)
[2020-10-31] MEDS ORDERED: DESFLURANE 240 ML INHALANT As Ordered ONE (18:58)
--- NOTE | 2020-10-31 19:37 | REP ---
INDICATION: LEFT DISTAL RADIUS ORIF. COMPARISON: Comparison radiographs are from October 25, 2020.. TECHNIQUE: Eleven views. 109.9 seconds of fluoroscopy time is reported. FINDINGS: A sequence of 11 last image hold fluoroscopically obtained spot radiographs of the left wrist document ventral screw plate fixation of the distal radius in anatomic position. IMPRESSION: Procedural imaging. ORIF left distal radial fracture. <Electronically signed by Ariel Mata > 10/31/201933
[2020-10-31] MEDS ORDERED: ONDANSETRON 4MG/2ML VIAL IV PRN (20:15)
[2020-10-31] MEDS ORDERED: oxyCODONE 5MG TAB PO PRN (20:15)
[2020-10-31] MEDS ORDERED: LR 1,000 ML IV SCH (20:15)
[2020-10-31] MEDS ORDERED: fentaNYL 100 MCG/2 ML INJECTION (J3010) IV PRN (20:15)
[2020-10-31] MEDS ORDERED: HYDROMORPHONE HCL 0.5 MG/ 0.5 ML SYRINGE (J1170 PER 1) IV PRN (20:15)
[2020-10-31 21:20] VITALS: BP 144/92
--- NOTE | 2020-11-01 09:47 | RO ---
OPERATIVE NOTE DATE OF OPERATION: 10/31/2020 PREOPERATIVE DIAGNOSIS: Left distal radius fracture. POSTOPERATIVE DIAGNOSIS: Left distal radius fracture. OPERATION PERFORMED: Left distal radius open reduction and internal fixation. SURGEON: Daniel Tai MD CHIEF WHARFINGER: None. ANESTHESIA: INDICATION FOR OPERATION: The patient is a 25-year-old female who fell while going on a skate board. She fell on an outstretched left hand and sustained a left distal radius fracture that was angulated and displaced. She underwent closed reduction in the emergency department. However, after multiple reduction attempts, an adequate christianity of length of her radius was unable to be achieved. She was counseled on operative risks and operative treatment and given her young age, active lifestyle and adequate christianity of her radial length, she elected to proceed with surgical intervention with open reduction and internal fixation. She was counseled on risks and benefits of surgery. She demonstrated understanding of the risks of surgery to include but not limited to bleeding, infection, damage to nearby structures, pain, stiffness, need for further surgery. She was able to sign an informed consent. All questions were answered to her full satisfaction. MATERIAL FORWARDED: None. DESCRIPTION OF FINDINGS: The patient had adequate christianity of her radial inclination, height and volar tilt after reduction and fixation. She had a brisk radial artery pulse at the end of the case as well even which included the ulnar artery. INFECTION CLASSIFICATION: 1, clean. ESTIMATED BLOOD LOSS: 5 mL DESCRIPTION OF THE OPERATION: The patient was met in the preoperative holding area where the correct name, identity, operative site, laterality and procedure were verified to be correct without discrepancies. The operative site was marked by myself. The patient was then taken to the operating room by nursing and anesthesia providers, placed supine on the operating room table. All bony prominences padded in the standard fashion. SCDs were placed on the legs which remained on throughout the case. The patient then underwent general anesthetic and placed on the operating table without complication. Her left upper extremity had the splint removed and a pneumatic tourniquet was placed on the left upper extremity. The extremity was then cleaned with Hibiclens and isopropyl alcohol. The hand table attachment was then placed and a large C-arm was used to evaluate the fracture position and make sure we had good images of the fracture. Next, the patient's left upper extremity was then prepped and draped in the usual sterile fashion. A timeout was then called and the patient's name, identity, operative site, laterality and procedure were verified without discrepancies. We also confirmed antibiotic administration with weight based Ancef within one hour of incision as well. Next, the FCR was palpated and the incision was marked directly over the FCR tendon sheath to the level of the wrist crease and then it was zigzagged radial and then ulnar. 1/4% Marcaine with epinephrine was then used to infiltrate the area around the incision. Esmarch was used to exsanguinate the limb and the tourniquet as inflated to 250 mmHg. Total tourniquet time was 110 minutes. Next, an incision was carried down to the level of the subcutaneous tissue and blunt dissection with tenotomies was used to expose the FCR sheath. The sheath was opened sharply and then this opening was extended both proximally and distally. The FCR was taken ulnarly and then the deeper sheath was then incised as well and adequately exposed. The FPL was then swept ulnarly as well and after adequate mobilization of the tissues was achieved, we had adequate exposure of the distal radius. The pronator quadratus was identified and had already been injured so did not come off of the distal radius as one clean piece of tissue. It was, however, mobilized to allow for adequate exposure of the distal radius. The brachioradialis was tenotomized and the first dorsal compartment tendons were identified and protected. Care was taken to assure protection of the median nerve and the radial artery during this case with blunt retractors. Hohmann retractors were then placed to allow for adequate exposure of the distal radius. The proximal fragment was mobilized and pronated into the wound and it was cleaned of all its fracture hematoma. An open reduction was then performed to allow for adequate christianity of distal radius length, alignment and rotation. An adequate reduction was achieved and this was then held in place with two K-wires going through the radial the radial styloid down into the radial shaft. Once these were held in place, a plate from the table was then chosen. A narrow plate was used with three holes proximally. It was fixed distally first with a cortical screw to suck the plate to the bone after fluoroscopy demonstrated appropriate position of the plate. Next, the unicortical locking screws were placed in the distal fragment, a total of three other screws. After all screws were placed in the plate that were used, the original cortical screw was then replaced with a locking screw. Once the distal screws were in place and appropriate position on the AP and lateral, the first proximal screw was then placed in the most proximal hole. This sank the proximal portion of the plate down a little bit, restoring the [place] volar tilt even more, approaching the anatomic position. Two other cortical nonlocking screws were then placed in the proximal holes. X-rays on the AP, lateral and the dorsal wrist images were then evaluated and there was no perforation of the screws dorsally to cause concern for extensor tendon irritation. Adequate christianity of volar tilt, radial length and radial inclination were achieved. The wound was then copiously irrigated and the tourniquet was let down and hemostasis was achieved. The radial artery was palpated without complication and felt to be brisk. The wound was then closed in layers and sterile dressing was applied. A volar slab splint was then placed. The patient was then aroused from anesthesia, having tolerated the procedure well. Please note that we also injected another 10 mL of a mixture of 1% Lidocaine and 1/4% Marcaine into the incision after the case. The patient was then transferred from the OR to the PACU having tolerated the procedure well without any complication. She will go home the same day and follow up on November [address] Simpson for x-rays, wound check and transition to a removable brace. She will be immobilized for approximately six weeks and likely start occupational therapy thereafter to start working on very gentle range of motion. The patient received preop antibiotics and postop antibiotics indicated, no postop DVT chemoprophylaxis indicated for the case.
== END 2020-10-31 21:28 | disposition home or self-care (01) ==
LOC: M SDC 13:49
PROVIDERS: ATTEND Student in an Organized Health Care Education/Training Program
DX: S52.572A Other intraarticular fracture of lower end of left radius, initial encounter for closed fracture (principal); V00.131A Fall from skateboard, initial encounter; Y92.89 Other specified places as the place of occurrence of the external cause; Y93.51 Activity, roller skating (inline) and skateboarding; J45.909 Unspecified asthma, uncomplicated; Z79.891 Long term (current) use of opiate analgesic; Z79.899 Other long term (current) drug therapy
CPT/HCPCS: 25608; 76000; 81025; C1713; J0131; J0690; J1100; J1170; J2250; J2405; J3010

== ENCOUNTER 2020-12-07 09:37 | Outpatient (RCR) | payer OTHER ==
[~2020-12-07 09:37] MED LIST changes: -LR 1,000 ML IV ONE
== END 2020-12-08 ==
LOC: M OT 09:37
PROVIDERS: ATTEND Orthopaedic Surgery
DX: Z47.89 Encounter for other orthopedic aftercare (principal); S52.502A Unspecified fracture of the lower end of left radius, initial encounter for closed fracture

== ENCOUNTER → 2020-12-12 | Outpatient (CLI) | payer OTHER ==
--- NOTE | 2020-12-12 12:11 | REP ---
INDICATION: ENCOUNTER FOR OTHER ORTHOPEDIC AFTERCARE. COMPARISON: Left wrist, 10/25/2020. TECHNIQUE: Four views of the left wrist were obtained. FINDINGS: There has been screw and plate fixation of the comminuted impacted fracture of the distal radius. There is good alignment of the fracture fragments with only minimal volar angulation of the distal fracture fragment. There is mild postoperative soft tissue swelling. IMPRESSION: Status post ORIF distal radial fracture. <Electronically signed by Davion Mayer > 12/12/20 [id number]
== END ==
LOC: M SOG 11:04
PROVIDERS: ATTEND Orthopaedic Surgery
DX: Z47.89 Encounter for other orthopedic aftercare (principal)

== ENCOUNTER 2021-01-02 09:33 | Outpatient (RCR) | payer OTHER | END 2021-01-08 | LOC: M OT 09:33 | PROVIDERS: ATTEND Orthopaedic Surgery | DX: S52.502A Unspecified fracture of the lower end of left radius, initial encounter for closed fracture (principal) ==

== ENCOUNTER → 2021-01-31 | Outpatient (CLI) | payer OTHER ==
--- NOTE | 2021-01-31 12:44 | REP ---
INDICATION: ORTHOPEDIC AFTER CARE. COMPARISON: 12/12/2020. TECHNIQUE: Three views left wrist. FINDINGS: There is advanced healing of a distal radial fracture, with stable appearance of metallic plate and multiple metallic screws at that location. Alignment is unchanged. IMPRESSION: Advanced healing of distal radial fracture with no other acute change. <Electronically signed by Conor Benitez > 01/31/21 [id number]
== END ==
LOC: M SOG 11:44
PROVIDERS: ATTEND Student in an Organized Health Care Education/Training Program
DX: Z47.89 Encounter for other orthopedic aftercare (principal)

== ENCOUNTER 2021-02-06 11:21 | Outpatient (RCR) | payer OTHER | END 2021-02-07 | LOC: M OT 11:21 | PROVIDERS: ATTEND Orthopaedic Surgery | DX: S52.502A Unspecified fracture of the lower end of left radius, initial encounter for closed fracture (principal) ==

== ENCOUNTER → 2022-01-31 | Outpatient (REF) | payer BC ==
[~2022-01-31] MED LIST changes: -ACET1TAB16 PO; +ACET300T48 PO; +ETON68IM SC; -NEXP1IMP SC
[2022-02-03 11:43] LABS: GC DNA AMPLIFICATION NEGATIVE (NEGATIVE)
== END ==
LOC: M PLALAB 14:35
PROVIDERS: ATTEND Advanced Practice Midwife
DX: Z12.4 Encounter for screening for malignant neoplasm of cervix (principal)
CPT/HCPCS: 87661; 87810; 87850; G0123

== ENCOUNTER → 2022-02-16 | Outpatient (REF) | LOC: M LABSMTC 11:03 | PROVIDERS: ATTEND Family Medicine | DX: Z20.822 Contact with and (suspected) exposure to COVID-19 (principal) ==

== ENCOUNTER → 2022-03-18 | Outpatient (CLI) | payer OTHER, BC ==
[2022-03-18 14:55] LABS: BLOOD UREA NITROGEN 8 MG/DL (7-18); CARBON DIOXIDE LEVEL 28 MEQ/L (21-32); CHLORIDE LEVEL 102 MEQ/L (98-107); CHOLESTEROL LEVEL 150 MG/DL (<200); CHOLESTEROL RISK RATIO 2.678 (<5); CREATININE FOR GFR 0.68 MG/DL (0.55-1.30); GLOMERULAR FILTRATION RATE > 60.0 (>60); GLUCOSE, FASTING 89 MG/DL (70-100); HDL CHOLESTEROL 56 MG/DL (>40); LDL CHOLESTEROL 78 MG/DL (<100); NON-HDL-C 94 MG/DL; SODIUM LEVEL 135 MEQ/L (136-145); TRIGLYCERIDES LEVEL 81 MG/DL (<150)
== END ==
LOC: M PLALAB 10:36
PROVIDERS: ATTEND Family Medicine
DX: Z79.899 Other long term (current) drug therapy (principal); E66.9 Obesity, unspecified

== ENCOUNTER → 2023-06-10 | Outpatient (REF) | LOC: M EMP 08:48 | PROVIDERS: ATTEND Family Medicine | DX: Z53.9 Procedure and treatment not carried out, unspecified reason (principal) ==

== ENCOUNTER → 2024-11-10 | Outpatient (CLI) | payer BC ==
[2024-11-10 15:37] LABS: PLATELET COUNT, AUTOMATED 321 10^3/uL (150-450)
[2024-11-10 16:26] LABS: HIV 1&2 SCREEN NEGATIVE (NEGATIVE)
[2024-11-10 16:31] LABS: Trichomonas vaginalis (AMP) NOT DETECTED (NEGATIVE)
[2024-11-10 16:34] LABS: HEPATITIS C VIRUS ABY INDEX 0.09 INDEX (<0.8)
[2024-11-10 16:54] LABS: GC DNA AMPLIFICATION NEGATIVE (NEGATIVE)
== END ==
LOC: M PLALAB 12:46
PROVIDERS: ATTEND Advanced Practice Midwife
DX: Z34.01 Encounter for supervision of normal first pregnancy, first trimester (principal)

== ENCOUNTER → 2024-11-28 | Outpatient (REF) | payer BC | LOC: M PLALAB 07:25 | PROVIDERS: ATTEND Nurse Practitioner Family | DX: N39.0 Urinary tract infection, site not specified (principal) ==

== ENCOUNTER → 2025-01-02 | Outpatient (CLI) | payer BC ==
[~2025-01-02] MED LIST changes: -IBUP1TAB6 PO; +SFHIBU600 PO
== END ==
LOC: M WHC 09:02
PROVIDERS: ATTEND Nurse Practitioner Family
DX: Z34.02 Encounter for supervision of normal first pregnancy, second trimester (principal)

== ENCOUNTER → 2025-01-26 | Outpatient (CLI) | payer BC | LOC: M WHC 12:01 | PROVIDERS: ATTEND Nurse Practitioner Family | DX: Z34.80 Encounter for supervision of other normal pregnancy, unspecified trimester (principal) ==

== ENCOUNTER → 2025-02-20 | Outpatient (CLI) | payer BC ==
[2025-02-20 13:27] LABS: GLUCOSE CHALLENGE TEST 1 HOUR 95 MG/DL (LESS THAN 140)
[2025-02-20 13:36] LABS: PLATELET COUNT, AUTOMATED 276 10^3/uL (150-450)
[2025-02-20 13:55] LABS: HIV 1&2 SCREEN NEGATIVE (NEGATIVE)
[2025-02-20 14:03] LABS: HEPATITIS C VIRUS ABY INDEX 0.13 INDEX (<0.8)
[2025-02-20 14:27] LABS: Trichomonas vaginalis (AMP) NOT DETECTED (NEGATIVE)
[2025-02-20 14:50] LABS: GC DNA AMPLIFICATION NEGATIVE (NEGATIVE)
== END ==
LOC: M PLALAB 09:26
PROVIDERS: ATTEND Advanced Practice Midwife
DX: Z34.02 Encounter for supervision of normal first pregnancy, second trimester (principal); Z3A.26 26 weeks gestation of pregnancy

== ENCOUNTER → 2025-03-27 | Outpatient (CLI) | payer BC | LOC: M WHC 07:50 | PROVIDERS: ATTEND Advanced Practice Midwife | DX: Z34.03 Encounter for supervision of normal first pregnancy, third trimester (principal); Z3A.31 31 weeks gestation of pregnancy ==

== ENCOUNTER → 2025-05-03 | Outpatient (REF) | payer BC | LOC: M SFHCWAGY 10:12 | PROVIDERS: ATTEND Advanced Practice Midwife | DX: O99.513 Diseases of the respiratory system complicating pregnancy, third trimester (principal); Z3A.00 Weeks of gestation of pregnancy not specified ==